=== PATIENT | male | born 1995 | race Caucasian/White ===

== ENCOUNTER → 2019-09-01 08:45 | Outpatient (CLI) | payer OTHER, SELFPAY ==
--- NOTE | 2019-09-01 08:52 | US_ITS ---
PROCEDURE: US ABDOMEN LIMITED CLINICAL INDICATION: RUQ PAIN COMPARISON: No exams were available for comparison FINDINGS: PANCREAS: Not well delineated due to overlying bowel gas LIVER: No focal liver lesions demonstrated. Homogeneous echogenicity. No intrahepatic biliary ductal dilatation evident. There is appropriate direction of blood flow within a non dilated portal vein. Fatty liver RIGHT KIDNEY: Unremarkable. Normal size and echogenicity. No hydronephrosis GALLBLADDER: No gallstones, gallbladder wall thickening, pericholecystic fluid, or biliary dilatation. IMPRESSION: Unremarkable limited abdominal ultrasound as detailed above disc Fatty liver with inadequate visualization of the pancreas Dictated by: Waldemar Hoyt MD 09/01/2019 14:07 Electronically signed by Waldemar Hoyt MD in [place] 09/01/2019 14:07
== END ==
PROVIDERS: PCP Family Medicine; Visit Provider Nurse Practitioner Family
DX: R10.11 Right upper quadrant pain (principal)
CPT/HCPCS: 76705

== ENCOUNTER → 2019-09-12 10:04 | Outpatient (CLI) | payer OTHER, SELFPAY | PROVIDERS: PCP Family Medicine; Visit Provider Nurse Practitioner Family | DX: R10.11 Right upper quadrant pain (principal) ==

== ENCOUNTER → 2019-09-14 07:34 | Outpatient (CLI) | payer OTHER, SELFPAY ==
--- NOTE | 2019-09-14 07:36 | NM_ITS ---
PROCEDURE: NM HEPATOBILIARY W PHARM CLINICAL INDICATION: RUQ PAIN COMPARISON: No exams were available for comparison TECHNIQUE: 8.43 millicuries technetium 99 M Choletec administration. DOSE: 1.7 micrograms CCK administration FINDINGS: Homogeneous activity is present within the hepatic parenchyma. Activity is present in the gallbladder by 10 minutes. Activity is present in the small bowel only after CCK was given to calculate ejection fraction. This is nonspecific. The gallbladder ejection fraction is calculated to be 89 percent. IMPRESSION: No evidence of cholecystitis with normal gallbladder ejection fraction at 89 percent. Dictated by: Pineda Lerma 09/14/2019 09:37 Electronically signed by Pineda Lerma in [place] 09/14/2019 09:37
== END ==
PROVIDERS: PCP Nurse Practitioner Family; Visit Provider Nurse Practitioner Family
DX: R10.11 Right upper quadrant pain (principal)
CPT/HCPCS: 78227; A9537; J2805

== ENCOUNTER → 2022-08-25 07:04 | Outpatient (CLI) | payer BC, SELFPAY | PROVIDERS: PCP Family Medicine; Visit Provider Family Medicine | DX: R06.81 Apnea, not elsewhere classified (principal); R06.83 Snoring; R53.83 Other fatigue | CPT/HCPCS: G0399 ==

== ENCOUNTER 2024-12-20 16:23 | Outpatient (CLI) | payer BC, SELFPAY | END 2024-12-20 23:59 | disposition home or self-care (01) | LOC: RT 16:24 | PROVIDERS: PCP Physician Assistant; Visit Provider Physician Assistant | DX: R00.2 Palpitations (principal) | CPT/HCPCS: 93225; 93227 ==

== ENCOUNTER 2025-01-01 08:20 | Outpatient (CLI) | payer BC, SELFPAY ==
--- NOTE | 2025-01-01 | CA_ITS ---
APPROVED REPORT EXAM: Comprehensive 2D, Doppler, and color-flow Echocardiogram Corsage Maker: Gianna Townsend RT(R) Ht: 5 ft 10 in Wt: 180lbs BSA: 2.00 BP: 126/69 mmHg Indications: syncope, palpitations, asthma, smoker 2D Dimensions LA Volume 19.50 mL LA Volume Index 9.75 mL/m2 (M/F) 16-34 EF AP4 59.10 % GL Strain -20.1 % M-Mode Dimensions RVDd 2.77 cm (0.9-2.6) LA Diam 3.51 cm (1.9-4.0) LVDd 5.12 cm (3.5-5.7) LVDs 3.80 cm (3.5-5.7) IVSd 0.49 cm (0.6-1.1) PWd 0.65 cm (0.6-1.1) EF (Teich) 50.40% FS 25.80% EDV (Teich) 124.90 mL ESV (Teich) 62.00 mL LV Diastology E Decel Time 253 (160-240 msec) E/A Ratio 1.4 Mitral Valve MV E Max Madan. 78.0 (40-130 cm/s) MV A Velocity 57.0 (40-130 cm/s) E/A Ratio 1.35 MV PHT 74.0 ms Tricuspid Valve TR P. Velocity 127.00 cm/s Left Ventricle The left ventricle is normal size. The left ventricular systolic function is normal. The left ventricular ejection fraction is within the normal range. There is normal left ventricular wall thickness. There is normal LV segmental wall motion. The left ventricular diastolic function is normal. LVEF is 55%. Right Ventricle The right ventricle is normal size. The right ventricular systolic function is normal. Atria The left atrium size is normal. The right atrium size is normal. There is no Doppler evidence of interatrial shunt. Aortic Valve The aortic valve opens well. There is no aortic valvular stenosis. No aortic regurgitation is present. Mitral Valve The mitral valve is normal in structure. No evidence of mitral valve stenosis. There is no mitral valve regurgitation noted. Tricuspid Valve Tricuspid valve is grossly normal in structure and function. Trace tricuspid regurgitation. There is insufficient TR jet to estimate RVSP. Pulmonic Valve The pulmonary valve is normal in structure. Trace pulmonic regurgitation. Great Vessels The aortic root is normal in size. IVC is normal in size and collapses >50% with inspiration. Pericardium There is no pericardial effusion. Other Information Study Quality: Adequate Conclusion Normal biventricular systolic function. No significant valvular stenosis or regurgitation. Electronically signed by : Monica Rodriguez MD 01/06/2025 21:54:03
== END 2025-01-01 23:59 | disposition home or self-care (01) ==
LOC: RT 08:22
PROVIDERS: PCP Physician Assistant; Visit Provider Physician Assistant
DX: R00.2 Palpitations (principal)
CPT/HCPCS: 93306

== ENCOUNTER 2025-01-17 10:48 | Outpatient (CLI) | payer BC, SELFPAY | END 2025-01-17 23:59 | disposition home or self-care (01) | LOC: RT 10:49 | PROVIDERS: PCP Physician Assistant; Visit Provider Physician Assistant | DX: I49.1 Atrial premature depolarization (principal); I47.10 Supraventricular tachycardia, unspecified; I49.3 Ventricular premature depolarization; R55 Syncope and collapse | CPT/HCPCS: 93270; 93272 ==

== ENCOUNTER 2025-01-23 09:33 | Outpatient (CLI) | payer BC, SELFPAY ==
--- NOTE | 2025-01-23 10:00 | CA_ITS ---
APPROVED REPORT Exam: Exercise Treadmill Technologist: Nyla Eubanks Ht: 5 ft 11 in Wt: 188 lbs BSA: 2.05 m2 HR: 67 bpm BP: 128/80 mmHg Stress Test Details Test: Exercise stress testing was performed using a Patrick protocol. HR Resting HR: 67 bpm Max Heart Rate (APMHR): 192 bpm Max HR Achieved: 172 bpm Target HR (85% APMHR): 163 bpm % of APMHR: 90 Recovery HR: 96 bpm HR response to stress: Normal HR response to stress BP Resting BP: 128.0/80.0 mmHg Max BP: 158.0/78.0 mmHg Recovery BP: 133.0/84.0 mmHg BP response to stress: Normal blood pressure response to stress. ECG Resting ECG: Normal sinus rhythm Stress EC.[address] depression Clinical Exercise duration: 9.23 min Exercise capacity: 10.9 METs Stress ECG Conclusion Symptoms: Fatigue Arrhythmias/Ectopy: None ST-T Changes: 0.[address] depression Conclusion: Average exercise capacity. No evidence of ischemia on ECG at peak stress. Electronically signed by : Monica Rodriguez MD 01/23/2025 23:41:47
== END 2025-01-23 23:59 | disposition home or self-care (01) ==
LOC: RT 09:33
PROVIDERS: PCP Physician Assistant; Visit Provider Physician Assistant
DX: R55 Syncope and collapse (principal)
CPT/HCPCS: 93017; 93018